=== PATIENT | male | born 1970 | race African-American/Black ===

== ENCOUNTER 2022-10-08 12:31 | Emergency (ER) | payer OTHER ==
[~2022-10-08] VITALS: Ht 175.3 cm; Wt 122.5 kg
[2022-10-08 12:38] VITALS: BP 140/81
[2022-10-08] MEDS ORDERED: ACETAMINOPHEN 325 MG TAB PO ONE (12:55)
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
--- NOTE | 2022-10-08 14:00 | NUR ---
Patient discharged with v/s stable. Written and verbal after care instructions given and explained. Patient verbalized understanding. Wheel Chair Assisted TO LOBBY. All questions addressed prior to discharge. Advised to follow up with PMD. PATIENT PROVIDED WITH BRAXTON
== END 2022-10-08 14:00 | disposition home or self-care (01) ==
LOC: MED 12:31
DX: M51.36 Other intervertebral disc degeneration, lumbar region (principal); W05.0XXA Fall from non-moving wheelchair, initial encounter; Y93.89 Activity, other specified; Y92.89 Other specified places as the place of occurrence of the external cause; Y99.8 Other external cause status
CPT/HCPCS: 72100; 99283

== ENCOUNTER 2024-07-27 01:25 | Emergency (ER) | payer OTHER ==
[~2024-07-27] VITALS: Ht 175.3 cm; Wt 113.4 kg
[2024-07-27 01:33] VITALS: BP 127/76; PULSE 83; RESP 18; TEMP 98; O2SAT 99
[2024-07-27] MEDS ORDERED: KETOROLAC 60 MG/2 ML VIAL IM ONE (01:43)
[2024-07-27] MEDS: MORPHINE SULFATE 4 MG/ML SYR IM ONE (01:59)
[2024-07-27] MEDS: KETOROLAC 60 MG/2 ML VIAL IM ONE (02:00)
[2024-07-27] MEDS ORDERED: NAPR-337 PO (02:49)
[2024-07-27 07:11] VITALS: BP 127/76; PULSE 83; RESP 18; TEMP 98; O2SAT 99
== END 2024-07-27 07:11 | disposition home or self-care (01) ==
LOC: MED 01:25
DX: G89.29 Other chronic pain (principal); M54.50 Low back pain, unspecified; Z79.1 Long term (current) use of non-steroidal anti-inflammatories (NSAID)
CPT/HCPCS: 96372; 99284; J1885; J2270